=== PATIENT | female | born 1965 | race African-American/Black ===

== ENCOUNTER 2018-03-25 10:27 | Outpatient (CLI) | payer OTHER | END 2018-03-25 10:28 | disposition home or self-care (01) | LOC: BICMAMMO 10:27 | PROVIDERS: ATTEND Family Medicine | DX: Z12.31 Encounter for screening mammogram for malignant neoplasm of breast (principal) | CPT/HCPCS: 77067 ==

== ENCOUNTER 2019-09-27 08:17 | Outpatient (CLI) | payer OTHER ==
--- NOTE | 2019-09-27 08:49 | MMO ---
Bilateral MAMMO Bilat Screen [facility]. CLINICAL HISTORY: Patient is 54 years old and is seen for screening. The patient has no family history of breast cancer. The patient has no personal history of cancer. VIEWS: The views performed were: bilateral craniocaudal and bilateral mediolateral oblique. This study has been interpreted with the assistance of computer-aided detection. MAMMOGRAM FINDINGS: The breasts are almost entirely fat. There are stable benign appearing calcifications seen in both breasts. There are no suspicious masses, suspicious calcifications, or new areas of architectural distortion. IMPRESSION: THERE IS NO MAMMOGRAPHIC EVIDENCE OF MALIGNANCY. A ROUTINE FOLLOW-UP MAMMOGRAM IN 1 YEAR IS RECOMMENDED. ACR BI-RADS Category 2 - Benign finding MAMMOGRAPHY NOTE: 1. A negative mammogram report should not delay a biopsy if a dominant of clinically suspicious mass is present. 2. Approximately 10% to 15% of breast cancers are not detected by mammography. 3. Adenosis and dense breasts may obscure an underlying neoplasm. Reported by: THALIA BULL MD Electonically Signed: [id number]
== END 2019-09-27 08:18 | disposition home or self-care (01) ==
LOC: BICMAMMO 08:17
PROVIDERS: ATTEND Family Medicine
DX: Z12.31 Encounter for screening mammogram for malignant neoplasm of breast (principal)
CPT/HCPCS: 77067

== ENCOUNTER 2022-01-09 11:19 | Observation (INO) | payer OTHER ==
[2022-01-09 13:05] VITALS: BMI 41.3
[2022-01-09] MEDS ORDERED: Ondansetron PF 4 MG/2 ML Vial IVP PRN (13:36)
[2022-01-09] MEDS ORDERED: Ondansetron ODT 4 MG TAB PO PRN (13:36)
[2022-01-09] MEDS ORDERED: Acetaminophen 325 MG TAB PO PRN (13:36)
[2022-01-09] MEDS ORDERED: Nicotine 7 MG PATCH TD PRN (13:42)
[2022-01-09] MEDS ORDERED: Electrolyte Replacement Protocol 1 EACH FS SCH (13:45)
[2022-01-09] MEDS ORDERED: Diltiazem 125 MG in Sodium Chloride 0.9% 100 ML IVPB SCH (13:45)
[2022-01-09] MEDS: Ketorolac Tromethamine 30 MG/ML VIAL IVP PRN (14:36)
[2022-01-09] MEDS ORDERED: Iopamidol-370 76% 500 ML 1 ML ONE (14:52)
[2022-01-09 15:05] LABS: CKMB 1.1 ng/mL (0-6.6)
[2022-01-09] MEDS ORDERED: tiZANidine HCl 4 MG TAB PO PRN (15:26)
[2022-01-09 18:03] LABS: CKMB 1.3 ng/mL (0-6.6)
[2022-01-09] MEDS: Enoxaparin Sodium 120 MG/0.8 ML SYRINGE SC SCH (20:41)
[2022-01-10] MEDS: Ketorolac Tromethamine 30 MG/ML VIAL IVP PRN ×3 (02:13→19:01)
[2022-01-10 04:37] LABS: #Lymphocytes 1.5 thou/uL (1.20-3.40); #Monocytes 0.4 thou/uL (0.11-0.59); #Neutrophils 7.4 thou/uL (1.40-6.50); %Basophils 0.1 % (0.0-1.0); %Eosinophils 0.2 % (0.0-10.0); %Lymphocytes 16.4 % (21.0-51.0); %Monocytes 4.4 % (0.0-10.0); %Neutrophils 78.8 % (42.0-75.0); Hemoglobin 13.4 g/dL (12.0-16.0); Mean Corpuscular HGB CONC 32.8 g/dL (32.0-36.0); Mean Corpuscular Hemoglobin 32.9 pg (27.0-31.0); Mean Platelet Volume 7.9 fL (7.4-10.4); Platelet Count 180 thou/uL (130-400); RBC Distribution Width 11.4 % (11.5-14.5); Red Blood Cell (RBC) Count 4.07 mill/uL (4.20-5.40); White Blood Cell (WBC) Count 9.3 thou/uL (4.8-10.8)
[2022-01-10 04:59] LABS: Anion Gap 13 mmol/L (10-20); BUN (Urea Nitrogen) 14 mg/dL (9.8-20.1); Calc. Creatinine Clearance 118 mL/min (70-130); Calcium 9.2 mg/dL (7.8-10.44); Carbon Dioxide 27 mmol/L (22-29); Cardiac Risk 3.4 (Less than 4.5); Chloride 105 mmol/L (98-107); Cholesterol 196 mg/dl (< 200 Desired); Glucose 97 mg/dL (70-105); HDL Cholesterol 58 mg/dL (>60 Neg Risk); LDL Cholesterol, Calculated 115 mg/dL; Potassium 3.8 mmol/L (3.5-5.1); Sodium 141 mmol/L (136-145); Triglycerides 116 mg/dL (Less than 150)
[2022-01-10] MEDS: Enoxaparin Sodium 120 MG/0.8 ML SYRINGE SC SCH ×2 (08:56→20:28)
[2022-01-10] MEDS: Levothyroxine 175 MCG TAB PO SCH (08:56)
[2022-01-10] MEDS: Pregabalin 75 MG CAP PO SCH (08:57)
[2022-01-10] MEDS: Aripiprazole 10 MG TAB PO SCH (08:57)
[2022-01-10] MEDS: Metoprolol Tartrate 25 MG TAB PO SCH (20:29)
[2022-01-11 04:27] LABS: #Eosinphils 0.2 thou/uL (0.0-0.7); #Lymphocytes 2.4 thou/uL (1.20-3.40); #Monocytes 0.6 thou/uL (0.11-0.59); #Neutrophils 4.4 thou/uL (1.40-6.50); %Basophils 0.3 % (0.0-1.0); %Lymphocytes 31.7 % (21.0-51.0); %Monocytes 7.3 % (0.0-10.0); %Neutrophils 58.6 % (42.0-75.0); Hemoglobin 12.6 g/dL (12.0-16.0); Mean Corpuscular HGB CONC 32.7 g/dL (32.0-36.0); Mean Platelet Volume 7.8 fL (7.4-10.4); Platelet Count 163 thou/uL (130-400); RBC Distribution Width 11.3 % (11.5-14.5); White Blood Cell (WBC) Count 7.5 thou/uL (4.8-10.8)
[2022-01-11 04:43] LABS: Anion Gap 13 mmol/L (10-20); BUN (Urea Nitrogen) 19 mg/dL (9.8-20.1); Calc. Creatinine Clearance 110 mL/min (70-130); Calcium 8.9 mg/dL (7.8-10.44); Carbon Dioxide 27 mmol/L (22-29); Chloride 103 mmol/L (98-107); Glucose 89 mg/dL (70-105); Potassium 3.6 mmol/L (3.5-5.1); Sodium 139 mmol/L (136-145)
[2022-01-11] MEDS: Enoxaparin Sodium 120 MG/0.8 ML SYRINGE SC SCH (08:28)
[2022-01-11] MEDS: Pregabalin 75 MG CAP PO SCH (08:29)
[2022-01-11] MEDS: Levothyroxine 175 MCG TAB PO SCH (08:29)
[2022-01-11] MEDS: Metoprolol Tartrate 25 MG TAB PO SCH (08:29)
[2022-01-11] MEDS ORDERED: Bisacodyl 5 MG TAB PO PRN (10:52)
[2022-01-11] MEDS ORDERED: Bisacodyl 5 MG TAB PO SCH (11:00)
[2022-01-11] MEDS: Aripiprazole 10 MG TAB PO SCH (11:01)
[2022-01-11 12:09] VITALS: BP 141/88; TEMP 97.5
[2022-01-11] MEDS ORDERED: traMADol HCl 50 MG TAB PO PRN (14:22)
[2022-01-11] MEDS ORDERED: Apixaban 5 MG TAB PO SCH (21:00)
== END 2022-01-11 17:35 | disposition home or self-care (01) ==
LOC: INTOOBSV 12:39 → 2NO 12:39
PROVIDERS: ADMIT Internal Medicine; ATTEND Internal Medicine
DX: I48.91 Unspecified atrial fibrillation (principal); G43.909 Migraine, unspecified, not intractable, without status migrainosus; F17.210 Nicotine dependence, cigarettes, uncomplicated; E03.9 Hypothyroidism, unspecified; I08.3 Combined rheumatic disorders of mitral, aortic and tricuspid valves; D72.829 Elevated white blood cell count, unspecified; I50.20 Unspecified systolic (congestive) heart failure; Z79.1 Long term (current) use of non-steroidal anti-inflammatories (NSAID); Z79.890 Hormone replacement therapy; Z79.899 Other long term (current) drug therapy
CPT/HCPCS: 36415; 71275; 78452; 80048; 80061; 82553; 85025; 93017; 93306; 96372; 96374; 96376; A9500; G0378; J0153; J1650; J1885; Q0162; Q9967

== ENCOUNTER 2022-05-12 12:30 | Outpatient (CLI) | payer OTHER | END 2022-05-12 12:31 | disposition home or self-care (01) | LOC: DTY/OP 12:30 | PROVIDERS: ATTEND Specialist | DX: E66.01 Morbid (severe) obesity due to excess calories (principal) | CPT/HCPCS: 97802 ==

== ENCOUNTER 2022-06-11 10:50 | Outpatient (CLI) | payer OTHER | END 2022-06-11 10:51 | disposition home or self-care (01) | LOC: DTY/OP 10:50 | PROVIDERS: ATTEND Specialist | DX: E66.01 Morbid (severe) obesity due to excess calories (principal); Z68.41 Body mass index [BMI] 40.0-44.9, adult | CPT/HCPCS: 97802 ==

== ENCOUNTER 2022-07-09 09:30 | Outpatient (CLI) | payer OTHER | END 2022-07-09 09:31 | disposition home or self-care (01) | LOC: DTY/OP 09:30 | PROVIDERS: ATTEND Specialist | DX: E66.01 Morbid (severe) obesity due to excess calories (principal) | CPT/HCPCS: 97802 ==

== ENCOUNTER 2022-09-10 09:23 | Outpatient (CLI) | payer OTHER | END 2022-09-10 09:24 | disposition home or self-care (01) | LOC: DTY/OP 09:23 | PROVIDERS: ATTEND Specialist | DX: E66.01 Morbid (severe) obesity due to excess calories (principal) | CPT/HCPCS: 97802 ==

== ENCOUNTER 2022-10-12 09:09 | Outpatient (CLI) | payer OTHER | END 2022-10-12 09:10 | disposition home or self-care (01) | LOC: DTY/OP 09:09 | PROVIDERS: ATTEND Specialist | DX: Z48.815 Encounter for surgical aftercare following surgery on the digestive system (principal); E66.01 Morbid (severe) obesity due to excess calories | CPT/HCPCS: 97802 ==

== ENCOUNTER 2022-11-10 08:46 | Outpatient (CLI) | payer OTHER | END 2022-11-10 08:47 | disposition home or self-care (01) | LOC: DTY/OP 08:46 | PROVIDERS: ATTEND Specialist | DX: E66.01 Morbid (severe) obesity due to excess calories (principal) | CPT/HCPCS: 97802 ==

== ENCOUNTER 2022-12-11 09:46 | Outpatient (CLI) | payer OTHER | END 2022-12-11 09:47 | disposition home or self-care (01) | LOC: DTY/OP 09:46 | PROVIDERS: ATTEND Specialist | DX: E66.01 Morbid (severe) obesity due to excess calories (principal) | CPT/HCPCS: 97802 ==

== ENCOUNTER 2023-01-08 09:08 | Outpatient (CLI) | payer OTHER | END 2023-01-08 09:09 | disposition home or self-care (01) | LOC: DTY/OP 09:08 | PROVIDERS: ATTEND Specialist | DX: E66.01 Morbid (severe) obesity due to excess calories (principal) | CPT/HCPCS: 97802 ==

== ENCOUNTER 2023-03-19 11:43 | Outpatient (CLI) | payer OTHER ==
[2023-03-19 13:38] LABS: #Basophils 0.1 10x3/uL (0.0-0.2); #Eosinphils 0.2 10x3/uL (0.0-0.5); #Monocytes 0.4 10x3/uL (0.0-1.1); %Basophils 0.7 % (0.0-2.0); %Eosinophils 2.7 % (0.0-6.0); %Lymphocytes 22.7 % (18.0-47.0); %Monocytes 5.6 % (0.0-10.0); ALT (SGPT) 11 U/L (8-55); AST (SGOT) 20 U/L (5-34); Alkaline Phosphatase 100 U/L (40-110); Anion Gap 14 mmol/L (10-20); BUN (Urea Nitrogen) 10 mg/dL (9.8-20.1); Bilirubin, Total 0.4 mg/dL (0.2-1.2); Calc. Creatinine Clearance 0 mL/min (70-130); Calcium 9.4 mg/dL (7.8-10.44); Carbon Dioxide 28 mmol/L (22-29); Chloride 101 mmol/L (98-107); Estimated GFR 67; Globulin 3.5 g/dL (2.4-3.5); Glucose 94 mg/dL (70-105); Hemoglobin 12.6 g/dL (12.0-15.5); Mean Corpuscular HGB CONC 32.3 g/dL (32.0-36.0); Mean Corpuscular Hemoglobin 30.1 pg (27.0-33.0); Mean Corpuscular Volume 93.3 fl (81.6-98.3); Mean Platelet Volume 10.2 fl (7.4-10.4); Platelet Count 241 10x3/uL (150-450); Potassium 3.9 mmol/L (3.5-5.1); Protein, Total 7.5 g/dL (6.0-8.3); RBC Distribution Width 12.4 % (11.5-14.5); Red Blood Cell (RBC) Count 4.18 10x6/uL (3.90-5.03); Sodium 139 mmol/L (136-145); White Blood Cell (WBC) Count 7.4 10x3/uL (3.5-10.5)
== END 2023-03-19 11:44 | disposition home or self-care (01) ==
LOC: LABBT 11:43
PROVIDERS: ATTEND Specialist
DX: Z01.818 Encounter for other preprocedural examination (principal); E66.01 Morbid (severe) obesity due to excess calories
CPT/HCPCS: 71046; 80053; 83036; 85025; 93005; 93010